=== PATIENT | female | born 1970 | race Caucasian/White ===

== ENCOUNTER 2023-02-18 12:03 | Emergency (ER) | payer MEDICAID, SELFPAY ==
[2023-02-18] VITALS (12 sets, daily range): BP systolic 145–169; BP diastolic 94–107; PULSE 90–99; RESP 18; TEMP 36.9; O2SAT 96–99
--- NOTE | 2023-02-18 12:50 | ED.GENADUL_ITS ---
Discharge Plan Disposition Patient Disposition: Home Discharge Details Clinical Impression: Dental caries, Odontalgia Primary Care Provider: Honorio Blake ED Provider: Little Rodriguez Home Meds and New Rx's Prescriptions: New clindamycin HCl [Cleocin HCl] 300 mg capsule 300 mg PO Q6H Qty: 40 0RF Discharge Instructions Instructions: Dental Caries (ED), Toothache (ED) Additional Instructions: Try coated aspirin 650 mg every 6 hours as needed for pain. You may alternate this with Tylenol 650 mg every 4-6 hours. Warm salt water rinses 6 times a day should help. Call one of the dentists on the list you were given for follow-up appointment for this week. Return to ED for fever of 100.4, grossly swollen swollen face, inability to swallow, any other concerns. Medical Decision Making Patient states her tooth has been broken for years but only started bothering her over the past 3 weeks. She says that she has a fear of dentists and doctors. I encouraged her to make a follow-up appointment with her dentist. She says the ibuprofen is irritating to her stomach so I have advised coated aspirin and Tylenol. We will give her some clindamycin. She says that penicillin does not work for me. She will return for fever with facial swelling, any other concerns. HPI General Date/Time Provider Initiated Documentation: 02/18/23 12:32 . HPI Narrative: This 52-year-old female patient presents with a chief complaint of dental pain. The patient states she has had a fractured right upper rear tooth for many years. It only started bothering her about 3 weeks ago. She has not made a dental appt. due to her fear of dentists. The patient states that cold, heat, or chewing do not bother it. She has no trismus or sore throat. She does say that the pain radiates into her ear and she has a headache. She says her neck is a little bit sore on the same side. Denies fever symptoms. There is no breathing difficulty Related Data Home Medications Medication Instructions Recorded Confirmed clindamycin HCl 300 mg capsule 300 mg PO Q6H #40 caps 02/18/23 (Cleocin HCl) Previous Rx's Medication Instructions Recorded clindamycin HCl 300 mg capsule 300 mg PO Q6H #40 caps 02/18/23 (Cleocin HCl) General Stated Complaint: DentalOral YOLI: 3 Review of Systems Constitutional Constitutional: Denies chills, Denies fever(s) and Reports headache(s) Eyes Eyes: Denies diplopia and Reports other (no redness) ENT Ears, Nose, Mouth, and Throat: Denies otalgia, Reports headache(s), Denies nasal congestion, Denies nasal discharge, Reports neck pain and Denies sore throat Cardiovascular Cardiovascular: Denies palpitations and Reports dyspnea Respiratory Respiratory: Denies cough and Reports dyspnea Gastrointestinal Gastrointestinal: Denies nausea Genitourinary Genitourinary: Denies dysuria Musculoskeletal Musculoskeletal: Reports neck pain and Reports other (edema) Integumentary/Breasts Skin/Breast: Denies change in pigmentation and Denies rash Neurologic Neurologic: Reports headache(s) Endocrine Endocrine: Denies palpitations PFSH All Active Problems Dental caries (Acute) Odontalgia (Acute) Social History Smoking/Tobacco Use Status: Never Smoking risk assessment performed?: Yes Drug use: Daily Substance use type: marijuana Housing: apartment Do you feel safe at home: Yes Do you feel safe in your relationship?: Yes Exam Const General: no acute distress, well developed, well groomed and not in acute distress Nutritional Appearance: well nourished Orientation: alert and oriented x3 HENMT Head: normocephalic and atraumatic Ears: external ears normal, TM normal on the right and TM normal on the left General nose exam: external nose normal Face and sinus: normal facial exam Mouth: oropharynx normal and moist mucous membranes Teeth and gingiva: other (Upper R rear wisdom tooth rotted to the gum, gum is TTP, ? small head) Throat: posterior oropharynx normal and uvula midline Eyes Conjunctivae: conjunctivae normal Neck Neck: full ROM, supple and no lymphadenopathy noted Resp Effort & Inspection: normal respiratory effort Cardio Heart Sounds: murmur and rub Skin General skin exam: no rashes or lesions noted and other (pink, warm, dry) Neuro General: patient alert, patient awake and patient oriented x3 Speech: speech normal Motor: other (MIRELES) Sensory Exam: no sensory deficits noted Extrem General: normal to inspection, full ROM and pedal edema present Psych Mental Status: mental status grossly normal Speech and Movement: speech and movement normal Affect: normal affect Course Vital Signs Vital signs: Vital Signs Temperature 36.9 C 02/18/23 12:21 Pulse 99 H 02/18/23 12:21 Respiratory Rate 18 02/18/23 12:21 Blood Pressure 165/107 H 02/18/23 12:21 Pulse Oximetry 98 02/18/23 12:21 Temperature 36.9 C 02/18/23 12:21 Temperature Source Tympanic 02/18/23 12:21 Pulse 99 H 02/18/23 12:21 Respiratory Rate 18 02/18/23 12:21 Respiratory Effort Normal 02/18/23 12:24 Blood Pressure 165/107 H 02/18/23 12:21 Pulse Oximetry 98 02/18/23 12:21 Oxygen Delivery Method Room Air 02/18/23 12:21 Oxygen Flow Rate 0 02/18/23 12:21 Pain Level 8 02/18/23 12:26
[2023-02-18] MEDS: Aspirin E.C. 325 MG TABEC 650 MG PO (13:16)
[2023-02-18] MEDS: Clindamycin 300 MG CAP PO (13:16)
== END 2023-02-18 15:14 | disposition home or self-care (01) ==
PROVIDERS: Emergency Provider Emergency Medicine; PCP Family Medicine
DX: K08.89 Other specified disorders of teeth and supporting structures (principal); K02.9 Dental caries, unspecified
CPT/HCPCS: 99283; 99282

== ENCOUNTER 2023-02-25 11:35 | Emergency (ER) | payer MEDICAID, SELFPAY ==
[2023-02-25 11:37] VITALS: BP 186/112; PULSE 92; RESP 18; TEMP 36.5; O2SAT 100
--- NOTE | 2023-02-25 12:08 | ED.GENADUL_ITS ---
Discharge Plan Disposition Patient Disposition: Home Condition: Stable Discharge Details Clinical Impression: COVID-19 Primary Care Provider: Honorio Blake ED Provider: Janine Maloney Home Meds and New Rx's Prescriptions: Continued clindamycin HCl [Cleocin HCl] 300 mg capsule 300 mg PO Q6H Qty: 40 0RF dextroamphetamine-amphetamine 20 mg tablet 20 mg PO TID Patient Comments: TAKE ONE TABLET BY MOUTH THREE TIMES A DAY Discharge Instructions Instructions: COVID-19 (Coronavirus Disease 2019) (ED) Additional Instructions: Please wear a mask and quarantine as per CDC recommendation for at least 5 days. Wash your hands. Take [id number] remedies and multivitamins. At this time you do not qualify for the Paxlovid as you are not high risk for complications or have significant other diseases. Please take Tylenol or Ibuprofen with food every 4-6 hours as needed for pain and swelling. Follow up with primary care provider in 3-5 days. Return to ED sooner if any worsening shortness of breath or concerns. Increase oral fluids. Stand Alone Forms: Work Release Referrals: Honorio Blake [Primary Care Provider] - 1 week Discharge Data Discharge Date/Time-TO BE ENTERED AT DEPARTURE: 02/25/23 13:02 Medical Decision Making 52-year-old female presents to the ER with a chief complaint of sore throat, pressure in ears, congestion slight cough and noting some sores to her outer upper lip, posterior oropharynx and in the right side of her nose. She does report some mild headache as well with photosensitivity. She is currently on clindamycin for dental infection. She has been taking that for the last week. She is allergic to penicillin. Patient denies any other lesions anywhere else. Rapid strep negative, rapid COVID positive. I did discuss these results with patient. Patient does not qualify for Paxlovid at this time due to no significant comorbidities, low BMI. Discussed home care, follow-up care with PCP with patient and quarantining per CDC recommendations. Discussed strict return instructions. This text was generated using [employer] system, please disregard any oddities of phrase or misspellings. HPI General Mode of arrival: ambulatory . Date/Time Provider Initiated Documentation: 02/25/23 11:41 . Limitations to Documentation: no limitations . Information obtained by: patient, RN notes reviewed and old records reviewed . HPI Narrative: 52-year-old female presents to the ER with a chief complaint of sore throat, pressure in ears, congestion slight cough and noting some sores to her outer upper lip, posterior oropharynx and in the right side of her nose. She does report some mild headache as well with photosensitivity. She is currently on clindamycin for dental infection. She has been taking that for the last week. She is allergic to penicillin. Patient denies any other lesions anywhere else. Related Data Home Medications Medication Instructions Recorded Confirmed clindamycin HCl 300 mg capsule 300 mg PO Q6H #40 caps 02/18/23 (Cleocin HCl) dextroamphetamine-amphetamine 20 20 mg PO TID 02/25/23 02/25/23 mg tablet Previous Rx's Medication Instructions Recorded clindamycin HCl 300 mg capsule 300 mg PO Q6H #40 caps 02/18/23 (Cleocin HCl) Allergies Allergy/AdvReac Type Severity Reaction Status Date / Time Penicillins AdvReac Unverified 02/25/23 11:40 General Stated Complaint: RespSymp YOLI: 3 Review of Systems All systems reviewed & are unremarkable except as noted in HPI and below ENT Ears, Nose, Mouth, and Throat: Reports as per HPI, Reports mouth lesions, Reports sinus pressure and Reports sore throat PFSH All Active Problems (Updated 02/25/23 @ 12:53 by Janine Maloney NP) Dental caries (Acute) Odontalgia (Acute) COVID-19 (Acute) Social History Smoking/Tobacco Use Status: Never Smoking risk assessment performed?: Yes Alcohol Intake: current Alcohol Intake frequency: a few times a week Alcohol type: beer Drug use: Daily Substance use type: marijuana Housing: apartment Do you feel safe at home: Yes Do you feel safe in your relationship?: Yes Exam Narrative Exam Narrative: Constitutional: Alert and oriented x3. Appears stated age. Normal body habitus. Head: Normocephalic, no trauma. Eyes: Pupils PERRL, Red reflex noted, EOM's intact. Eyelids symmetrical without lesions, discharge, or swelling. ENT: Bilateral TM's WNL, External ear normal to inspection, no mastoid TTP, swelling, or erythema, Nasal turbinates slightly boggy, there is a lesion noted to her right inner nose, no nasal discharge. Normal dentition, Posterior pharynx slightly erythemic, no exudate. Chest: RRR, Normal S1, S2, distal pulses intact. Resp: Lungs clear to auscultation bilaterally, no wheezes, rales, or rhonchi. [facility] Head images: 1. Vesicular flesh-colored lesion noted to the outer lip Nose image: 1. Small red dry lesion noted to the right inner nare Course Vital Signs Vital signs: Vital Signs Temperature 36.5 C 02/25/23 11:37 Pulse 92 H 02/25/23 11:37 Respiratory Rate 18 02/25/23 11:37 Blood Pressure 186/112 H 02/25/23 11:37 Pulse Oximetry 100 02/25/23 11:37 Temperature 36.5 C 02/25/23 11:37 Temperature Source Tympanic 02/25/23 11:37 Pulse 92 H 02/25/23 11:37 Respiratory Rate 18 02/25/23 11:37 Respiratory Effort Normal, Non-Labored 02/25/23 11:42 Blood Pressure 186/112 H 02/25/23 11:37 Blood Pressure Position Sitting 02/25/23 11:37 Pulse Oximetry 100 02/25/23 11:37 Oxygen Delivery Method Room Air 02/25/23 11:37 Oxygen Flow Rate 0 02/25/23 11:37 Pain Level 8 02/25/23 11:37 PAWSS Have you Been Recently Intoxicated or Drunk Within the Last 30 days?: Yes Have you Ever Experienced Previous Episodes of Alcohol Withdrawal?: Yes Have you ever Experienced Withdrawal Seizures?: No Have you ever Experienced Delirium Tremens(DT)s?: Yes Have you ever undergone Alcohol Rehabilitation Treatment (i.e, inpt ot outpatient treatment programs)?: Yes Have you ever Experienced Blackouts?: Yes Have you ever Combined Alcohol with other Downers within the last 90 days?: No Have you ever Combined Alcohol with any other Substance of Abuse during the last 90 days?: No Positive Blood Alcohol level on Presentation? [PCS.BAL]: Unable to Obtain Evidence of Increased Autonomic Activity (i.e. HR>120, tremor, sweating, agitation, nausea)?: No Result: 5
== END 2023-02-25 13:02 | disposition home or self-care (01) ==
PROVIDERS: Emergency Provider Registered Nurse Emergency; PCP Family Medicine
DX: U07.1 COVID-19 (principal)
CPT/HCPCS: 87426; 87880; 99283; 87081

== ENCOUNTER 2023-09-25 09:37 | Emergency (ER) | payer MEDICAID, SELFPAY ==
[2023-09-25 09:45] VITALS: BP 189/114; PULSE 103; RESP 16; TEMP 36.9; O2SAT 100
--- NOTE | 2023-09-25 10:00 | DI.RAD_ITS ---
Exam(s) XR HIP LT AP LAT ONLY EXAM: XR HIP LT AP LAT ONLY CLINICAL HISTORY: acute on chronic hip pain. TECHNIQUE: 2D digital imaging was performed. COMPARISON: No exams were available for comparison FINDINGS: Two views. There is no evidence of acute hip fracture or dislocation. However, there is severe advanced osteoar thritic degenerative change with [id number] narrowing of the joint space, subarticular cysts, and o steophytes. IMPRESSION: Severe advanced OA changes but no fractures of the left hip evident. DATA REPOSITORY: RADIATION DOSE DELIVERED:
--- NOTE | 2023-09-25 10:00 | DI.RAD_ITS ---
Exam(s) XR KNEE LT 3V AP,LAT,ILIR EXAM: XR KNEE LT 3V AP,LAT,ILIR CLINICAL HISTORY: knee pain, atraumatic. TECHNIQUE: 2D digital imaging was performed. COMPARISON: CR XR HIP LT AP LAT ONLY from 09/25/2023 FINDINGS: No evidence of fracture or joint effusion. No joint space narrowing nor degenerative changes. Bone density normal. No osseous lesions. IMPRESSION: No significant osseous findings in the left knee. DATA REPOSITORY: RADIATION DOSE DELIVERED:
--- NOTE | 2023-09-25 10:04 | ED.GENADUL_ITS ---
Discharge Plan Disposition Patient Disposition: Home Condition: Improving Discharge Details Chief Complaint: Orthopedic Clinical Impression: Hip osteoarthritis, Knee pain Primary Care Provider: Honorio Blake ED Provider: Sebastián Smith Home Meds and New Rx's Prescriptions: No Action dextroamphetamine-amphetamine 20 mg tablet 20 mg PO TID Patient Comments: TAKE ONE TABLET BY MOUTH THREE TIMES A DAY Discharge Instructions Instructions: Osteoarthritis (ED) Additional Instructions: Please follow-up with primary care and orthopedic surgery. Consider Lyme screening if symptoms do not resolve/worsen. HPI General Date/Time Provider Initiated Documentation: 09/25/23 09:55 . HPI Narrative: 53-year-old female presents with atraumatic hip and knee discomfort, has had longstanding left hip discomfort now over the last several days experiencing left knee discomfort, denies fevers nausea vomiting or other systemic signs of illness. Some pain radiating from left lower back down the leg. Ambulatory without assistance. Related Data Home Medications Medication Instructions Recorded Confirmed dextroamphetamine-amphetamine 20 20 mg PO TID 02/25/23 09/25/23 mg tablet Allergies Allergy/AdvReac Type Severity Reaction Status Date / Time Penicillins AdvReac Other (See Unverified 09/25/23 09:44 Comment) General Stated Complaint: Orthopedic YOLI: 4 Review of Systems Narrative: Review of Systems Constitutional: negative Eyes: negative ENT: negative Cardiovascular: negative Respiratory: negative Gastrointestinal: negative : negative Musculoskeletal: Hip pain, knee pain Skin: negative Neurologic: negative Psych: negative Exam Narrative Exam Narrative: Physical Examination General: alert, awake, cooperative, resting comfortably, no acute distress HEENT: normocephalic, atraumatic Neck: supple, trachea midline; full ROM Chest: normal to inspection Respiratory: normal respiratory effort, speaking in full sentences Skin: no lesions, rashes or trauma appreciated Neuro: AAOx3, normal speech, moving all extremities Extremities: Exacerbation of symptoms with left straight leg raise, full flexion extension at knee, mild left knee effusion, no erythema warmth or induration, no crepitus, no laxity, no deformity; soft compartments, warm well-perfused sensate; patient ambulatory without assistance Psych: Appropriate mood and affect Course Vital Signs Vital signs: Vital Signs Temperature 36.9 C 09/25/23 09:45 Pulse 103 H 09/25/23 09:45 Respiratory Rate 16 09/25/23 09:45 Blood Pressure 189/114 H 09/25/23 09:45 Pulse Oximetry 100 09/25/23 09:45 Temperature 36.9 C 09/25/23 09:45 Pulse 103 H 09/25/23 09:45 Respiratory Rate 16 09/25/23 09:45 Respiratory Effort Normal, Non-Labored 09/25/23 09:47 Blood Pressure 189/114 H 09/25/23 09:45 Blood Pressure Position Sitting 09/25/23 09:45 Pulse Oximetry 100 09/25/23 09:45 Oxygen Delivery Method Room Air 09/25/23 09:45 Oxygen Flow Rate 0 09/25/23 09:45 Pain Level 9 09/25/23 09:45 Medical Decision Making 53-year-old female presents with atraumatic left hip pain and left knee pain, longstanding left hip issues, relatively recent left knee discomfort over the last several days to weeks, afebrile nontoxic full range of motion of left lower extremity, ambulatory without assistance, exacerbation of symptoms with straight leg raise left leg, mild left knee joint effusion, no crepitus deformity or laxity appreciated, no warmth induration or erythema to knee, high clinical suspicion for acute on chronic left hip osteoarthritis with subsequent development of left knee arthritis, must also consider left sciatica low suspicion for fracture or dislocation, low suspicion for septic joint given afebrile state as well as full range of motion of joint lower suspicion for Lyme arthritis again given minimal effusion no warmth no systemic signs of illness and retention of range of motion. Screening x-ray hip x-ray knee trial of analgesia anti-inflammatory. Home care instructions and return precautions to be given. 23: 26 evidence of osteoarthritis left hip high clinical suspicion this is leading to her left knee discomfort. Will provide orthopedic referral. Counseled patient to return for further evaluation/testing if he develops any worsening symptoms. Specifically discussed the point of obtaining Lyme screening if effusion/knee pain does not resolve/worsens. Quality:SDOH Health Related Social Needs: No Data to Display PFSH All Active Problems (Updated 09/25/23 @ 11:28 by Sebastián Smith MD) Knee pain (Acute) Hip osteoarthritis (Acute) COVID-19 (Acute) Social History Smoking/Tobacco Use Status: Never Smoking risk assessment performed?: Yes Alcohol Intake: current Alcohol Intake frequency: a few times a week Alcohol type: beer Drug use: Daily Substance use type: marijuana Housing: apartment Do you feel safe at home: Yes Do you feel safe in your relationship?: Yes
== END 2023-09-25 11:41 | disposition home or self-care (01) ==
PROVIDERS: Emergency Provider Emergency Medicine; PCP Family Medicine
DX: M25.562 Pain in left knee (principal); M16.12 Unilateral primary osteoarthritis, left hip
CPT/HCPCS: 73562; 99283; 73502

== ENCOUNTER 2023-12-04 09:32 | Emergency (ER) | payer MEDICAID, SELFPAY ==
[2023-12-04] VITALS (26 sets, daily range): BP systolic 131–170; BP diastolic 71–118; PULSE 79–114; RESP 12–20; TEMP 36.7; O2SAT 96–97
--- NOTE | 2023-12-04 09:30 | RT.EKG_ITS ---
APPROVED REPORT Exam: Resting ECG Reason for Exam: Chest Pain Patient Location: E HR:98 bpm ECG Measurements Heart Rate 98 AXIS WA 181 P 25 QRSd 99 QRS 58 QT 359 T 39 QTc 459 Conclusion Sinus rhythm...normal P axis, V-rate 60- 99 Physician: no stemi
--- NOTE | 2023-12-04 09:45 | DI.CT_ITS ---
Exam(s) CT CHEST/ABD/PEL W EXAM: CT CHEST/ABD/PEL W CLINICAL HISTORY: vomiting blood, epigastric pain. TECHNIQUE: Imaging Protocol: Axial computed tomography images with coronal and sagittal reformatted images were created and reviewed CONTRAST MATERIAL: Intravenous: Omnipaque 350 Contrast volume:100 ml Oral: None COMPARISON: No exams were available for comparison FINDINGS: CHEST: LUNGS: There are no infiltrates nor pleural effusions.. There is a small pleural based noncalcified nodule posteriorly in the right upper lobe which measures 3 mm. There is a tiny 2 millimeter nodule laterally in the right upper lobe. There are no pleural effusions. MEDIASTINUM: There is no hilar nor mediastinal adenopathy. Visualized thyroid unremarkable.There is s light thickening of the wall of the mid-lower esophagus. No evidence of pneumomediastinum. No enlar ged lymph nodes in this region. CARDIAC: Heart size is normal. There is no pericardial effusion.Diameter of the ascending thoracic a tia is enlarged, measuring 3.9 cm. No dissection. Aortic arch and descending thoracic aorta exhibi t upper normal diameters. OSSEOUS: No significant osseous lesions.No fractures.. ABDOMEN: There is no ascites. LIVER: There are no focal hepatic lesions nor dilatation of intrahepatic ducts. GALLBLADDER/BILIARY: No obvious calcified gallstones. However, there is slight thickening of the wal l of the fundus of the gallbladder evident. The CBD is not dilated. PANCREAS: No evidence of pancreatic mass nor dilatation of the pancreatic duct. SPLEEN: Spleen is not enlarged. There are no intrasplenic lesions. Splenic and portal veins are renner nt. ADRENALS: Tiny 4 millimeter nodule in the genu of the right adrenal gland probably adenoma. Left adr enal gland unremarkable. KIDNEYS: No calculi nor hydronephrosis. No solid renal masses. No cysts evident. ABDOMINAL AORTA: Abdominal aorta is not enlarged. LYMPH NODES: There is no retroperitoneal nor paraaortic adenopathy. ABDOMINAL WALL: No evidence of significant anterior abdominal wall nor inguinal hernia. GI: There is no evidence of bowel obstruction. PELVIS: LYMPH NODES: There is no intrapelvic nor inguinal adenopathy. GI: No evidence of appendicitis.No evidence of sigmoid diverticulitis. URINARY BLADDER: No calculi nor masses evident REPRODUCTIVE: There is a prominent left side uterine fibroid measuring 3.7 x 3.6 cm. No ovarian mass es. No free fluid in the pelvis. OSSEOUS: No significant osseous lesions. There is discontinuity in the right transverse process of L 4 consistent with a fracture, possibly not acute. Other transverse processes appear unremarkable. M ild degenerative anterolisthesis L4 upon L5 due to facet arthropathy. There are no pars defects. There are advanced degenerative changes in the left hip noted. Right hip unremarkable. IMPRESSION: 1. No lung infiltrates nor pleural effusions. Few tiny benign-appearing lung nodules are noted. 2. The diameter of the ascending thoracic aorta is enlarged, measuring 3.9 cm. No evidence of dissec tion. 3. Left-sided uterine fibroid measuring 3.7 x 3.6 cm. 4. Slightly thickened lower esophagus. No evidence of pneumomediastinum, given the history here. Discussed by phone with ER physician. RADIATION DOSE DELIVERED: 1,076.32mGy.cm Total DLP DATA REPOSITORY: All CT scans at this facility are submitted to the National Radiology Data Registry (NRDR) Dose Index Registry (DIR) with the [employer] ([employer]). RADIATION OPTIMIZATION: All CT scans at this facility use at least one of these dose optimization te chniques: automated exposure control; mA and/or kV adjustment per patient size (includes targeted exa ms where dose is matched to clinical indication); or iterative reconstruction.
--- NOTE | 2023-12-04 09:48 | ED.GENADUL_ITS ---
Discharge Plan Disposition Patient Disposition: Home Condition: Good Discharge Details Clinical Impression: Vomiting Primary Care Provider: Honorio Blake ED Provider: Skinny Marino Home Meds and New Rx's Prescriptions: New pantoprazole [Protonix] 40 mg tablet,delayed release (DR/EC) 40 mg PO DAILY Qty: 90 0RF famotidine 20 mg tablet 20 mg PO BID Qty: 180 0RF sucralfate [Carafate] 1 gram tablet 1 g PO BID Qty: 120 0RF No Action dextroamphetamine-amphetamine 20 mg tablet 20 mg PO TID Patient Comments: TAKE ONE TABLET BY MOUTH THREE TIMES A DAY Discharge Instructions Instructions: Hematemesis (ED) Additional Instructions: At this time your vomiting has resolved, your blood levels are stable. That being said, I am still concerned that you have mild esophageal varices that are causing the previous bleeding. Please check the Zofran as needed for nausea at home. Please take the antacid medications (Protonix, famotidine, Carafate) as prescribed to reduce the acid and irritation in your stomach. Please avoid any alcohol, tomato-based products, citrus based products or carbonated products. Please stick with a bland diet of rice, bananas, noodles, toast until you follow-up closely with the surgeon. If you have any bleeding, please return immediately. If you notice any worsening of your symptoms, or any new symptoms such as vomiting, diarrhea, fever, chills, shortness of breath, chest pain, numbness, weakness, or fainting , please return immediately to the emergency department for reevaluation. Please follow up with your primary care provider as soon as possible for reassessment and reevaluation. As always, it was a pleasure participating in your medical care today. Referrals: Honorio Blake [Primary Care Provider] - Honorio Fernandez MD [ [facility] STAFF PHYSICIAN] - Olga Lidia Burnhma DO [OSTEOPATHIC DOCTOR] - Discharge Data Discharge Date/Time-TO BE ENTERED AT DEPARTURE: 12/04/23 13:16 HPI General Date/Time Provider Initiated Documentation: 12/04/23 09:35 . HPI Narrative: 53-year-old female with a past medical history of chronic hip pain, excessive alcohol use for 10 years for which she notably decreased for years ago, (current alcohol intake is about 5 beers per week) who presents today for epigastric pain and hematemesis. Patient states that 48 hours ago she began vomited, she had burning chest pain as well as epigastric discomfort. Over the last 48 hours the vomiting has continued but diminished in frequency. Additionally now there is only speckling and small amounts of bloody streaking in the vomit. She still has continued epigastric and chest discomfort which she states is slightly worsening. She denies fever or chills. She denies diarrhea. She is not on any blood thinners. She has no history of endoscopy. She denies numbness or tingling. She does not take any oral antacids except for occasional Tums. She denies any excessive alcohol binging prior to this episode. No other complaints at this time. Related Data Home Medications Medication Instructions Recorded Confirmed dextroamphetamine-amphetamine 20 20 mg PO TID 02/25/23 12/04/23 mg tablet famotidine 20 mg tablet 20 mg PO BID #180 tabs 12/04/23 pantoprazole 40 mg tablet,delayed 40 mg PO DAILY #90 tabs 12/04/23 release (Protonix) sucralfate 1 gram tablet (Carafate) 1 g PO BID #120 tabs 12/04/23 Previous Rx's Medication Instructions Recorded famotidine 20 mg tablet 20 mg PO BID #180 tabs 12/04/23 pantoprazole 40 mg tablet,delayed 40 mg PO DAILY #90 tabs 12/04/23 release (Protonix) sucralfate 1 gram tablet (Carafate) 1 g PO BID #120 tabs 12/04/23 Allergies Allergy/AdvReac Type Severity Reaction Status Date / Time Penicillins AdvReac Other (See Unverified 09/25/23 09:44 Comment) General Stated Complaint: Chest Pain YOLI: 2 Review of Systems All systems reviewed & are unremarkable except as noted in HPI and below Exam Narrative Exam Narrative: 1.Const: Well-nourished, Well-developed, appearing stated age 2.Eyes: PERRL, no conjunctival injection, and symmetrical lids. 3.ENT: Atraumatic external nose and ears. Moist MM. Neck: Symmetric, trachea midline, No thyromegaly. 4.CVS: +S1/S2, No murmurs or gallops. Peripheral pulses 2+ and equal in all extremities. Brisk capillary refill in all extremities. 5.RESP: Unlabored respiratory effort. Clear to auscultation bilaterally. No wheezes rales or rhonchi. No subcutaneous crepitus in the skin of the neck of the chest. No reproducible chest wall pain. 6.GI: Mild to moderate epigastric discomfort. Voluntary guarding. No pain to McBurney's point. No lower abdominal pain. 7.MSK: Normocephalic/Atraumatic, Extremities w/o deformity or ttp No cyanosis or clubbing, Normal movement of all extremities 8.Skin: Warm, Dry. No rashes or lesions. 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 Sensation grossly intact, no focal neurologic deficits. 10.Psych: (AAO) x3. Appropriate mood and affect Course Vital Signs Vital signs: Vital Signs Temperature 36.7 C 12/04/23 09:34 Pulse 114 H 12/04/23 09:34 Respiratory Rate 17 12/04/23 09:34 Blood Pressure 170/105 H 12/04/23 09:34 Pulse Oximetry 97 12/04/23 09:34 Temperature 36.7 C 12/04/23 09:34 Temperature Source Temporal Artery Scan 12/04/23 09:34 Pulse 114 H 12/04/23 09:34 Respiratory Rate 17 12/04/23 09:34 Respiratory Effort Short of Breath 12/04/23 09:43 Blood Pressure 170/105 H 12/04/23 09:34 Blood Pressure Position Sitting 12/04/23 09:34 Pulse Oximetry 97 12/04/23 09:34 Oxygen Delivery Method Room Air 12/04/23 09:34 Oxygen Flow Rate 0 12/04/23 09:34 Pain Level 10 12/04/23 09:34 Medical Decision Making 53-year-old female with a past medical history of chronic hip pain, excessive alcohol use for 10 years for which she notably decreased for years ago, (current alcohol intake is about 5 beers per week) who presents today for epigastric pain and hematemesis. Patient states that 48 hours ago she began vomited, she had burning chest pain as well as epigastric discomfort. Over the last 48 hours the vomiting has continued but diminished in frequency. Additionally now there is only speckling and small amounts of bloody streaking in the vomit. She still has continued epigastric and chest discomfort which she states is slightly worsening. She denies fever or chills. She denies diarrhea. She is not on any blood thinners. She has no history of endoscopy. She denies numbness or tingling. She does not take any oral antacids except for occasional Tums. She denies any excessive alcohol binging prior to this episode. No other complaints at this time. Physical exam demonstrates epigastric discomfort, no lower abdominal discomfort. Differential is concerning for pancreatitis, gallbladder pathology, most concerning for Claudia-Small tear. Symptoms appear less consistent for Boerhaave's tear, however this does remain on the differential. Will rehydrate, type and screen, give Protonix, famotidine, GI cocktail, get a CT scan to rule out esophageal perforation, monitor closely and reassess. EKG shows no evidence of STEMI. Symptoms appear inconsistent with ACS. 2 PM Laboratory workup is returned, mild white count of 12, however hemoglobin notably normal. Electrolytes normal. Creatinine 1.1. Troponin normal. Alcohol level negative. CT scan shows no infiltrates, ascending aorta is slightly enlarged at 3.9, but no evidence of dissection. Fibroid present, and thickened esophagus is noted, but no other acute process. Patient feels much better after GI cocktail, Protonix, famotidine. Patient has had no additional vomiting, no additional hematemesis. With stable vital signs, resolved sympt oms, no additional vomiting, and clinical history of improving symptomatology at that, I do not see an emergent indication for admission at this time. I did consult surgery and discussed the case with Dr. Benavidez. He came and evaluated the patient. They will follow-up closely with the patient on an outpatient basis for further management. Will give famotidine, Protonix, and Carafate for home use prescriptions. Recommend avoidance of alcohol, avoidance of tomato- based products and citrus products for the next few weeks. Discussed red flags for which to return. Patient stable for discharge at time of reassessment. I have extensively reviewed the treatment plan and discharge instructions with the patient. I have addressed all patient concerns at this time. The patient was made aware of what symptoms to monitor for that would warrant a return to the emergency department. Discussed the plan with the patient, they demonstrate verbal understanding and agreement with our assessment and plan at this time. The documentation in this chart was dictated using [employer] dictation software. Please excuse any dictation errors. FINDINGS: CHEST: LUNGS: There are no infiltrates nor pleural effusions.. There is a small pleural based noncalcified nodule posteriorly in the right upper lobe which measures 3 mm. There is a tiny 2 millimeter nodule laterally in the right upper lobe. There are no pleural effusions. MEDIASTINUM: There is no hilar nor mediastinal adenopathy. Visualized thyroid unremarkable.There is slight thickening of the wall of the mid-lower esophagus. No evidence of pneumomediastinum. No enlarged lymph nodes in this region. CARDIAC: Heart size is normal. There is no pericardial effusion.Diameter of the ascending thoracic aorta is enlarged, measuring 3.9 cm. No dissection. Aortic arch and descending thoracic aorta exhibit upper normal diameters. OSSEOUS: No significant osseous lesions.No fractures.. ABDOMEN: There is no ascites. LIVER: There are no focal hepatic lesions nor dilatation of intrahepatic ducts. GALLBLADDER/BILIARY: No obvious calcified gallstones. However, there is slight thickening of the wall of the fundus of the gallbladder evident. The CBD is not dilated. PANCREAS: No evidence of pancreatic mass nor dilatation of the pancreatic duct. SPLEEN: Spleen is not enlarged. There are no intrasplenic lesions. Splenic and portal veins are patent. ADRENALS: Tiny 4 millimeter nodule in the genu of the right adrenal gland probably adenoma. Left adrenal gland unremarkable. KIDNEYS: No calculi nor hydronephrosis. No solid renal masses. No cysts evident. ABDOMINAL AORTA: Abdominal aorta is not enlarged. LYMPH NODES: There is no retroperitoneal nor paraaortic adenopathy. ABDOMINAL WALL: No evidence of significant anterior abdominal wall nor inguinal hernia. GI: There is no evidence of bowel obstruction. PELVIS: LYMPH NODES: There is no intrapelvic nor inguinal adenopathy. GI: No evidence of appendicitis.No evidence of sigmoid diverticulitis. URINARY BLADDER: No calculi nor masses evident REPRODUCTIVE: There is a prominent left side uterine fibroid measuring 3.7 x 3.6 cm. No ovarian masses. No free fluid in the pelvis. OSSEOUS: No significant osseous lesions. There is discontinuity in the right transverse process of L4 consistent with a fracture, possibly not acute. Other transverse processes appear unremarkable. Mild degenerative anterolisthesis L4 upon L5 due to facet arthropathy. There are no pars defects. There are advanced degenerative changes in the left hip noted. Right hip unremarkable. IMPRESSION: 1. No lung infiltrates nor pleural effusions. Few tiny benign-appearing lung nodules are noted. 2. The diameter of the ascending thoracic aorta is enlarged, measuring 3.9 cm. No evidence of dissection. 3. Left-sided uterine fibroid measuring 3.7 x 3.6 cm. 4. Slightly thickened lower esophagus. No evidence of pneumomediastinum, given the history here. Discussed by phone with ER physician. Quality:SDOH Health Related Social Needs: No Data to Display PFSH All Active Problems (Updated 12/04/23 @ 13:07 by Skinny Marino DO) Vomiting (Acute) Epigastric pain (Acute) COVID-19 (Acute) Social History Smoking/Tobacco Use Status: Never Smoking risk assessment performed?: Yes Alcohol Intake: current Alcohol Intake frequency: a few times a week Alcohol type: beer Drug use: Daily Substance use type: marijuana Housing: apartment Do you feel safe at home: Yes Do you feel safe in your relationship?: Yes PAWSS Have you Been Recently Intoxicated or Drunk Within the Last 30 days?: No Have you Ever Experienced Previous Episodes of Alcohol Withdrawal?: No Have you ever Experienced Withdrawal Seizures?: No Have you ever Experienced Delirium Tremens(DT)s?: No Have you ever undergone Alcohol Rehabilitation Treatment (i.e, inpt ot outpatient treatment programs)?: Yes Have you ever Experienced Blackouts?: No Have you ever Combined Alcohol with other Downers within the last 90 days?: No Have you ever Combined Alcohol with any other Substance of Abuse during the last 90 days?: No Result: 1
[2023-12-04 09:55] LABS: Abs Immature Grans 0.04 10^3/uL (0.0-0.06); Absolute Basophil Count 0.06 10^3/uL (0.0-0.2); Absolute Eosinophil Count 0.09 10^3/uL (0.0-0.7); Absolute Monocyte Count 1.12 10^3/uL (0.1-0.8); Basophils % 0.5 %; Eosinophils % 0.7 %; HCT 45.1 % (36.0-46.0); HGB 14.9 g/dL (11.2-15.7); Immature Grans % 0.3 %; Lymphocytes % 13.9 %; MCV 94 fL (80-95); Monocytes % 8.8 %; Neutrophils % 75.8 %; Platelet Count 322 10^3/uL (130-400); RDW 12.5 % (11.7-14.6); RDW-SD 43.5 fL; WBC 12.69 10^3/uL (4.4-10.8)
[2023-12-04 09:59] LABS: Lactate 2.6 mmol/L (0.6-1.4)
[2023-12-04 10:00] LABS: Absolute Lymphocyte Count 1.76 10^3/uL (1.2-3.4); Absolute Neutrophil Count 9.62 10^3/uL (1.2-6.7)
[2023-12-04] MEDS: Omnipaque 350 MG/ML 500 ML BTL-Imaging package 100 ML IJ (10:06)
[2023-12-04] MEDS: Normal Saline - Diluent 50 ML VIAL IJ (10:06)
[2023-12-04 10:09] LABS: PTT Activated 29.4 sec (23.6-32.8)
[2023-12-04] MEDS: Famotidine 20 MG/2 ML VIAL IVP (10:11)
[2023-12-04] MEDS: Pantoprazole 40 MG VIAL IVP (10:11)
[2023-12-04 10:18] LABS: ALT 30 U/L (14-59); AST 22 U/L (15-37); Albumin 4.1 g/dL (3.4-5.0); Alkaline Phosphatase 93 U/L (46-116); Anion Gap 12.5 mmol/L (3-11); BUN 9 mg/dL (7-18); Bilirubin, Total 0.9 mg/dL (0.2-1.0); CO2 26.5 mmol/L (21.0-32.0); CREATININE 1.1 mg/dL (0.55-1.02); Calcium 10.3 mg/dL (8.5-10.1); Chloride 97 mmol/L (98-107); ETHANOL BLOOD < 3.0 mg/dL (<10); Estimated GFR 60.84 (mL/min/1.73m2); Glucose 154 mg/dL (74-106); Lipase 20 U/L (16-77); Potassium 3.7 mmol/L (3.5-5.1); Sodium 136 mmol/L (136-145); Total Protein 8.3 g/dL (6.4-8.2); Troponin I < 50 ng/L (< or =60)
[2023-12-04] MEDS: Lactated Ringers 1,000 ML 1000 ML IV (10:35)
--- NOTE | 2023-12-04 11:58 | W.SURGCON ---
Date of service: 12/04/23 Time of Service: 11:58 Assessment and Plan Assessment and plan (1) Epigastric pain: Status: Acute Assessment and plan: 53-year-old woman with epigastric pain for a couple of days that seems to be resolving and getting better clinically/subjectively. She is hemodynamically stable and has a grossly benign abdominal exam. Certainly biliary colic and/or cholecystitis is within the differential diagnosis and she has a slightly elevated leukocytosis. There is no shift in her leukocytosis. All of her LFTs are completely normal. CT scan suggested possible thickening of the gallbladder fundus. I have looked over the CT scan myself. The gallbladder does not appear particularly distended. There is definitely no pericholecystic fluid. I do not appreciate any obvious wall thickening though at the very top of the fundus it might be slightly thickened. I think the most likely diagnosis here is acute gastritis and/or peptic ulcer disease related to daily alcohol intake but sounds relatively excessive by her report. In the absence of a Rodas sign and no obvious pericholecystic fluid after 2 days of pain, I think acute gallbladder disease is less likely. Subjectively she is feeling better anyway, is hemodynamically stable and afebrile. I think seeing if she can tolerate clear liquid oral intake is warranted and if so then she can probably be discharged home safely on antisecretory medications and holding alcohol. She can get an outpatient ultrasound and have outpatient follow-up in the surgery office with us to better assess her gallbladder if we continue to think this is the problem. At the same time, she should see us in a couple of weeks to consider an EGD at minimum. At this time I think it safe for her to be discharged home and she can call our office and schedule an outpatient follow-up appointment with us to see how she is feeling and whether or not more imaging is warranted. If her pain otherwise worsens or returns she can certainly come back and be reevaluated with an ultrasound. History of Present Illness Narrative: The patient is a 53-year-old woman who says she has had a burning discomfort behind her sternum for the last couple of days. She drinks daily and is unclear whether drinking exacerbated or not. The pain was severe enough that she came into the emergency department but she says it is feeling a lot better now. She says she occasionally gets pain there from time to time but is never been this bad. She has never had intra-abdominal surgery. PFSH All Active Problems (Updated 12/04/23 @ 12:00 by Gurvinder Benavidez MD) Epigastric pain (Acute) COVID-19 (Acute) Social History Smoking/Tobacco Use Status: Never Smoking risk assessment performed?: Yes Alcohol Intake: current Alcohol Intake frequency: a few times a week Alcohol type: beer Drug use: Daily Substance use type: marijuana Housing: apartment Do you feel safe at home: Yes Do you feel safe in your relationship?: Yes Exam Narrative Exam Narrative: General: Nontoxic, comfortable and interactive. She is actually sleeping at the bedside when I first went in. Neuro: Alert and oriented x 3 Psych: Good mood and affect, good insight and understanding into her condition Chest: Nonlabored breathing Heart: Regular Abdomen: Soft, nondistended and grossly nontender. The right upper quadrant is not tender. There is no Rodas sign. The epigastric region has some moderate tenderness to deep palpation but no peritoneal signs. Results Last Vital Signs Temp 98.1 F 12/04/23 09:34 Pulse 82 12/04/23 11:31 Resp 13 12/04/23 11:31 BP 156/89 H 12/04/23 11:31 Pulse Ox 96 12/04/23 10:00 Labs 12/04/23 09:40 12/04/23 09:40 Labs: Laboratory Results - last 24 hr 12/04/23 09:40 WBC 12.69 H RBC 4.80 Hgb 14.9 Hct 45.1 MCV 94 MCH 31.0 MCHC 33.0 RDW 12.5 Plt Count 322 MPV 10.0 Immature Gran % 0.3 Neutrophils % 75.8 Lymphocytes % 13.9 Monocytes % 8.8 Eosinophils % 0.7 Basophils % 0.5 Nucleated RBC % 0.0 Absolute Neutrophils 9.62 H Absolute Lymphocytes 1.76 Absolute Monocytes 1.12 H Absolute Eosinophils 0.09 Absolute Basophils 0.06 PT 10.0 INR 1.0 APTT 29.4 VBG Lactate 2.6 H* Sodium 136 Potassium 3.7 Chloride 97 L Carbon Dioxide 26.5 Anion Gap 12.5 H BUN 9 Creatinine 1.1 H Est GFR (CKD-EPI 2020) 60.84 Glucose 154 H Calcium 10.3 H Total Bilirubin 0.9 AST 22 ALT 30 Alkaline Phosphatase 93 Troponin I < 50 Total Protein 8.3 H Albumin 4.1 Lipase 20 Ethyl Alcohol < 3.0 ABO/Rh A Positive Antibody Screen NEGATIVE
[2023-12-04] MEDS: Ondansetron 4 MG/2 ML VIAL IVP (12:25)
[2023-12-04] MEDS: Sucralfate 1 GM TAB 2 GM PO (13:15)
[2023-12-04] MEDS: Ondansetron O.D.T. 4 MG TABEF, 3 TABS/BTL PO (13:15)
== END 2023-12-04 13:16 | disposition home or self-care (01) ==
PROVIDERS: Emergency Provider Student in an Organized Health Care Education/Training Program; PCP Family Medicine
DX: R10.13 Epigastric pain (principal); R11.10 Vomiting, unspecified; F10.90 Alcohol use, unspecified, uncomplicated
CPT/HCPCS: 00123; 36415; 74177; 80053; 83690; 86850; 86900; 86901; 93005; 96361; 96374; 96375; 99285; 71260; 80320; 83605; 84484; 85025; 85610; 85730; 93010; 99283; J2405; J2470